=== PATIENT | female | born 1960 | race Caucasian/White ===

== ENCOUNTER 2022-04-20 12:46 | Emergency (ER) | payer OTHER ==
[~2022-04-20] VITALS: Ht 165.1 cm; Wt 94.0 kg
[2022-04-20] MEDS ORDERED: ATORVASTATIN CA10 MG PO (13:38)
[2022-04-20] MEDS ORDERED: LISINOPRIL5 MG PO (13:38)
[2022-04-20] MEDS ORDERED: CIPRO500 MG PO (14:22)
== END 2022-04-20 14:30 | disposition home or self-care (01) ==
LOC: FSED 12:49
DX: N39.0 Urinary tract infection, site not specified (principal); R31.9 Hematuria, unspecified; I10 Essential (primary) hypertension; E78.5 Hyperlipidemia, unspecified; G40.909 Epilepsy, unspecified, not intractable, without status epilepticus
CPT/HCPCS: 74176; 81003; 99284

== ENCOUNTER 2022-07-16 04:48 | Inpatient (IN) | payer MEDICARE, OTHER ==
[~2022-07-16] VITALS: Ht 165.1 cm; Wt 95.3 kg
[~2022-07-16 04:48] MED LIST: ATORVASTATIN CA10 MG PO; CIPRO500 MG PO; LISINOPRIL5 MG PO
[2022-07-16] MEDS ORDERED: SODIUM CHLORIDE 0.9% 1000ML 1,000 ML IV STA (05:17)
[2022-07-16] MEDS ORDERED: ONDANSETRON HCL INJ 2MG/ML 2ML 2 MG/ML VIAL IV STA (05:17)
[2022-07-16 05:23] LABS: BASOPHILS # (AUTO) 0.1 (0.0-0.1); BASOPHILS % 0.6 % (0.0-1.0); EOSINOPHILS # (AUTO) 0.2 (0.0-0.4); EOSINOPHILS % 1.7 % (0.0-6.0); HEMATOCRIT 39.3 % (34.2-44.1); HEMOGLOBIN 13.8 g/dL (12.0-16.0); LYMPHOCYTES # (AUTO) 1.9 (1.0-3.2); LYMPHOCYTES % 22.1 % (18.0-39.1); MEAN CORPUSCULAR HEMOGLOBIN 32.3 pg (28-32); MEAN CORPUSCULAR HGB CONC 35.1 g/dL (31-35); MONOCYTES # (AUTO) 0.4 (0.2-0.8); MONOCYTES % 5.1 % (4.4-11.3); NEUTROPHILS # (AUTO) 6.1 (2.1-6.9); PLATELET COUNT 262 x10e3/uL (140-360); RED BLOOD COUNT 4.27 x10e6/uL (3.6-5.1)
[2022-07-16] MEDS ORDERED: DICYCLOMINE HCL 20 MG/2 ML VIAL IM ONE (05:30)
[2022-07-16 05:38] LABS: ALANINE AMINOTRANSFERASE 27 IU/L (0-55); ALBUMIN 3.9 g/dL (3.5-5.0); ALBUMIN/GLOBULIN RATIO 1.1 (0.8-2.0); ALKALINE PHOSPHATASE 107 IU/L (40-150); BLOOD UREA NITROGEN 15 mg/dL (7-26); BUN/CREATININE RATIO 18 (6-25); CARBON DIOXIDE 23 mmol/L (22-29); CHLORIDE 106 mmol/L (98-107); CREATINE KINASE 132 IU/L (29-168); CREATININE, SERUM 0.85 mg/dL (0.57-1.11); GLUCOSE 140 mg/dL (74-118); LIPASE 38 U/L (8-78); MAGNESIUM 1.9 MG/DL (1.3-2.1); SODIUM 141 mmol/L (136-145)
[2022-07-16 05:42] LABS: CLARITY,URINE CLEAR (CLEAR); COLOR,URINE YELLOW (YELLOW); KETONES,URINE NEGATIVE (NEGATIVE); LEUKOCYTE ESTERASE ,URINE NEGATIVE (NEGATIVE); NITRITE,URINE NEGATIVE (NEGATIVE); PROTEIN,URINE DIPSTICK NEGATIVE (NEGATIVE); URINE UROBILINOGEN 0.2 mg/dL (0.2 - 1)
[2022-07-16 05:54] LABS: BACTERIA,URINE MODERATE /HPF; EPITHELIAL CELLS,URINE FEW /LPF; WBC,URINE (MAN) 0-5 /HPF (0-5)
[2022-07-16] MEDS ORDERED: IOPAMIDOL 370 MG/ML 100 ML INFUS..BTL INJ ONE (06:41)
[2022-07-16] MEDS: Morphine 4mg INJECTION 4 MG/ML INJ IV PRN (08:41)
[2022-07-16] MEDS: SODIUM CHLORIDE 0.9% 1000ML 1,000 ML IV SCH ×2 (08:41→17:06)
[2022-07-16] MEDS: ONDANSETRON HCL INJ 2MG/ML 2ML 2 MG/ML VIAL IV PRN (08:41)
[2022-07-16 09:26] VITALS: BP 157/88
[2022-07-16 10:00] VITALS: BP 157/88
[2022-07-16 12:09] VITALS: BP 135/82
[2022-07-16] MEDS: LISINOPRIL 2.5 MG TAB PO SCH (16:08)
[2022-07-16] MEDS: BUPROPION HCL 150 MG TABCR PO SCH (16:08)
[2022-07-16 16:48] VITALS: BP 132/78
[2022-07-16 20:00] VITALS: BP 107/71
[2022-07-16] MEDS: ATORVASTATIN 10 MG TAB PO SCH (20:56)
[2022-07-17] VITALS (9 sets, daily range): BP systolic 105–137; BP diastolic 62–78
[2022-07-17] MEDS: SODIUM CHLORIDE 0.9% 1000ML 1,000 ML IV SCH ×3 (04:00→16:27)
[2022-07-17 06:27] LABS: BASOPHILS % 0.3 % (0.0-1.0); EOSINOPHILS # (AUTO) 0.1 (0.0-0.4); EOSINOPHILS % 1.7 % (0.0-6.0); HEMATOCRIT 37.9 % (34.2-44.1); HEMOGLOBIN 12.7 g/dL (12.0-16.0); LYMPHOCYTES # (AUTO) 1.7 (1.0-3.2); LYMPHOCYTES % 25.7 % (18.0-39.1); MEAN CORPUSCULAR HEMOGLOBIN 32.1 pg (28-32); MEAN CORPUSCULAR HGB CONC 33.5 g/dL (31-35); MEAN CORPUSCULAR VOLUME 95.7 fL (81-99); MONOCYTES # (AUTO) 0.4 (0.2-0.8); MONOCYTES % 6.4 % (4.4-11.3); NEUTROPHILS # (AUTO) 4.3 (2.1-6.9); NEUTROPHILS % 65.4 % (38.7-80.0); PLATELET COUNT 211 x10e3/uL (140-360); RED BLOOD COUNT 3.96 x10e6/uL (3.6-5.1); RED CELL DISTRIBUTION WIDTH 12.7 % (11.7-14.4)
[2022-07-17 06:47] LABS: ALBUMIN 3.4 g/dL (3.5-5.0); ALBUMIN/GLOBULIN RATIO 1.2 (0.8-2.0); ANION GAP 13.6 mmol/L (8-16); CALCIUM 8.4 mg/dL (8.4-10.2); CREATININE, SERUM 0.73 mg/dL (0.57-1.11); POTASSIUM 3.6 mmol/L (3.5-5.1)
[2022-07-17] MEDS: LISINOPRIL 2.5 MG TAB PO SCH ×2 (08:47→16:28)
[2022-07-17] MEDS: BUPROPION HCL 150 MG TABCR PO SCH (08:47)
[2022-07-17] MEDS ORDERED: BUPIVACAINE HCL 0.25% 10ML MPF VIAL INJ ONE (09:45)
[2022-07-17] MEDS ORDERED: ONDANSETRON HCL INJ 2MG/ML 2ML 2 MG/ML VIAL IV PRN (11:00)
[2022-07-17] MEDS ORDERED: LIDOCAINE HCL 2% LOCAL INJ 5 ML SDV VIAL INJ ONE (12:15)
[2022-07-17] MEDS ORDERED: POVIDONE IODINE 0.05% 0.05 % ML PO ONE (12:15)
[2022-07-17] MEDS ORDERED: ATROPINE SULFATE 1 MG/ML VIAL ONE (12:15)
[2022-07-17] MEDS ORDERED: DEXAMETHASONE SOD PHOS INJ 4 MG/ML SDV ONE (12:15)
[2022-07-17] MEDS ORDERED: PROPOFOL IV EMULSION 10 MG/ML 20 ML VIAL ONE (12:15)
[2022-07-17] MEDS ORDERED: NEOSTIGMINE 1 MG/ML 10ML VIAL ONE (12:15)
[2022-07-17] MEDS ORDERED: ROCURONIUM BROMIDE 10 MG/ML 5ML VIAL IV ONE (12:15)
[2022-07-17] MEDS ORDERED: SEVOFLURANE INHAL SOLN 250 ML PEN BTL ONE (12:15)
[2022-07-17] MEDS ORDERED: KETOROLAC TROMETHAMINE 30 MG/ML VIAL ONE (12:15)
[2022-07-17] MEDS ORDERED: ONDANSETRON HCL INJ 2MG/ML 2ML 2 MG/ML VIAL ONE (12:15)
[2022-07-17] MEDS: ONDANSETRON HCL INJ 2MG/ML 2ML 2 MG/ML VIAL IV PRN (12:34)
[2022-07-17] MEDS: Morphine 4mg INJECTION 4 MG/ML INJ IV PRN (12:35)
[2022-07-17] MEDS ORDERED: MIDAZOLAM HCL 2 MG/2 ML VIAL ONE (13:11)
[2022-07-17] MEDS ORDERED: FENTANYL CITRATE/PF 100MCG/2 ML INJ ONE (13:11)
[2022-07-17] MEDS: HYDROCODONE/APAP 5MG-325MG TAB PO PRN (17:59)
[2022-07-17] MEDS: ATORVASTATIN 10 MG TAB PO SCH (21:59)
[2022-07-18] MEDS: HYDROCODONE/APAP 5MG-325MG TAB PO PRN ×2 (00:21→08:09)
[2022-07-18 01:39] VITALS: BP 113/63
[2022-07-18 04:00] VITALS: BP 113/63
[2022-07-18 04:57] LABS: BASOPHILS % 0.2 % (0.0-1.0); EOSINOPHILS % 0.1 % (0.0-6.0); HEMATOCRIT 35.5 % (34.2-44.1); HEMOGLOBIN 12.6 g/dL (12.0-16.0); LYMPHOCYTES # (AUTO) 1.3 (1.0-3.2); LYMPHOCYTES % 11.3 % (18.0-39.1); MEAN CORPUSCULAR HEMOGLOBIN 32.6 pg (28-32); MEAN CORPUSCULAR HGB CONC 35.5 g/dL (31-35); MEAN CORPUSCULAR VOLUME 91.7 fL (81-99); MONOCYTES # (AUTO) 0.5 (0.2-0.8); MONOCYTES % 4.6 % (4.4-11.3); NEUTROPHILS # (AUTO) 9.8 (2.1-6.9); NEUTROPHILS % 83.3 % (38.7-80.0); PLATELET COUNT 234 x10e3/uL (140-360); RED BLOOD COUNT 3.87 x10e6/uL (3.6-5.1); RED CELL DISTRIBUTION WIDTH 13.1 % (11.7-14.4)
[2022-07-18 05:27] LABS: ALBUMIN 3.5 g/dL (3.5-5.0); ALBUMIN/GLOBULIN RATIO 1.2 (0.8-2.0); ANION GAP 15.1 mmol/L (8-16); CALCIUM 8.6 mg/dL (8.4-10.2); CREATININE, SERUM 0.78 mg/dL (0.57-1.11); POTASSIUM 4.1 mmol/L (3.5-5.1)
[2022-07-18] MEDS ORDERED: ULTRACET TABLE1 EACH PO (06:34)
[2022-07-18 07:38] VITALS: BP 112/65
[2022-07-18 08:00] VITALS: BP 119/66
[2022-07-18] MEDS: LISINOPRIL 2.5 MG TAB PO SCH (08:25)
[2022-07-18] MEDS: BUPROPION HCL 150 MG TABCR PO SCH (08:25)
[2022-07-18] MEDS ORDERED: ONDANSETRON HCL 4 MG ORAL DISINTEGRATING TAB PO PRN (09:15)
[2022-07-18] MEDS ORDERED: ALPRAZOLAM 0.5 MG TAB PO ONE (11:30)
[2022-07-18 16:02] VITALS: BP 116/72
== END 2022-07-18 17:10 | disposition home or self-care (01) | DRG 419 ==
LOC: ER 04:54 → ERHOLD 08:01 → MED/SURG3 09:08 → MED/SURG 07-17 17:28
PROVIDERS: ADMIT Internal Medicine; ATTEND Internal Medicine
PROC: 0FT44ZZ Resection of Gallbladder, Percutaneous Endoscopic Approach (ICD-10-PCS; principal; 2022-07-17 10:11)
DX: K80.12 Calculus of gallbladder with acute and chronic cholecystitis without obstruction (principal); K82.8 Other specified diseases of gallbladder; I10 Essential (primary) hypertension; F41.9 Anxiety disorder, unspecified; Z87.891 Personal history of nicotine dependence; Z20.822 Contact with and (suspected) exposure to COVID-19
CPT/HCPCS: 0223U; 36415; 71045; 74177; 76705; 80053; 81001; 82150; 82550; 82553; 83690; 83735; 84484; 85025; 88304; 93005; 96361; J0461; J0500; J0696; J1100; J1885; J2001; J2250; J2270; J2405; J2543; J2710; J3010; J7030; Q9967

== ENCOUNTER 2025-05-09 14:04 | Emergency (ER) | payer MEDICARE ==
[~2025-05-09] VITALS: Ht 162.6 cm; Wt 96.4 kg
[~2025-05-09 14:04] MED LIST changes: +ULTRACET TABLE1 EACH PO
[2025-05-09] MEDS ORDERED: CIPRO500 MG PO (16:16)
[2025-05-09] MEDS ORDERED: IMODIUM A-D2 M2 PO (16:16)
[2025-05-09] MEDS: SODIUM CHLORIDE 0.9% 1000ML 1,000 ML IV ONE ×2 (16:20→17:59)
[2025-05-09] MEDS: ACETAMINOPHEN 325 MG TAB PO ONE (18:06)
[2025-05-09 18:07] VITALS: PULSE 137; RESP 17; TEMP 97.7
[2025-05-09 18:41] VITALS: BP 139/97; PULSE 134; RESP 18; O2SAT 98
== END 2025-05-09 18:40 | disposition home or self-care (01) ==
LOC: FSED 14:08
DX: R19.7 Diarrhea, unspecified (principal); R00.0 Tachycardia, unspecified; I10 Essential (primary) hypertension; F41.9 Anxiety disorder, unspecified; R94.31 Abnormal electrocardiogram [ECG] [EKG]
CPT/HCPCS: 71046; 80048; 80076; 81003; 84484; 85025; 85379; 93005; 99283; J7030

== ENCOUNTER 2025-05-21 09:48 | Inpatient (IN) | payer MEDICARE ==
[~2025-05-21] VITALS: Ht 162.6 cm; Wt 97.5 kg
[~2025-05-21 09:48] MED LIST changes: +IMODIUM A-D2 M2 PO
[2025-05-21 10:40] LABS: BASOPHILS % 0.6 % (0.0-1.0); EOSINOPHILS % 1.7 % (0.0-6.0); LYMPHOCYTES % 20.7 % (18.0-39.1); MONOCYTES % 5.3 % (4.4-11.3); NEUTROPHILS % 71.1 % (38.7-80.0); RED CELL DISTRIBUTION WIDTH 13.6 % (11.7-14.4)
[2025-05-21] MEDS: SODIUM CHLORIDE 0.9% 1000ML 1,000 ML IV STA (10:48)
[2025-05-21] MEDS: METOPROLOL TARTRATE 25 MG TAB PO ONE (10:59)
[2025-05-21] MEDS: METOPROLOL TARTRATE INJ 1 MG/ML VIAL IV ONE (10:59)
[2025-05-21 11:01] LABS: EST GLOMERULAR FILTRATION RATE 70.0 ML/MIN (>=60)
[2025-05-21 11:48] LABS: LEUKOCYTE ESTERASE ,URINE SMALL (NEGATIVE)
[2025-05-21 11:49] LABS: EPITHELIAL CELLS,URINE FEW /LPF; PROTEIN,URINE DIPSTICK NEGATIVE (NEGATIVE); URINE UROBILINOGEN 0.2 mg/dL (0.2 - 1)
[2025-05-21 11:58] LABS: INR 1.17
[2025-05-21] MEDS: ASPIRIN 81 MG CHEW TAB PO ONE (12:56)
[2025-05-21 14:06] VITALS: PULSE 118; RESP 18; TEMP 98.2
[2025-05-21 14:54] VITALS: BP 115/87; PULSE 120; RESP 18; TEMP 97.8; O2SAT 98
[2025-05-21 15:25] VITALS: BP 115/87; PULSE 120; RESP 18; TEMP 97.8; O2SAT 98
[2025-05-21] MEDS ORDERED: ACETAMINOPHEN 325 MG TAB PO PRN (16:30)
[2025-05-21] MEDS ORDERED: LIDOCAINE 4% PATCH TP PRN (16:30)
[2025-05-21] MEDS ORDERED: BENZONATATE 100 MG CAP PO PRN (16:30)
[2025-05-21] MEDS ORDERED: POTASSIUM CHLORIDE 20 MEQ TAB CR PO PRN (16:30)
[2025-05-21] MEDS ORDERED: HYDRALAZINE HCL 20 MG/ML VIAL IV PRN (16:30)
[2025-05-21] MEDS ORDERED: DIPHENHYDRAMINE HCL 25 MG CAP PO PRN (16:30)
[2025-05-21] MEDS ORDERED: ALBUTEROL/IPRATROPIUM 3 ML NEB NEB PRN (16:30)
[2025-05-21] MEDS ORDERED: ONDANSETRON HCL INJ 2MG/ML 2ML 2 MG/ML VIAL IV PRN (16:30)
[2025-05-21] MEDS ORDERED: DEXTROSE 50% SYRINGE 50 ML IV PRN (16:30)
[2025-05-21] MEDS ORDERED: IOPAMIDOL 370 MG/ML 100 ML INFUS..BTL INJ ONE (17:03)
[2025-05-21] MEDS: ENOXAPARIN SOD INJ 40 MG/0.4 ML SYR SC SCH (18:42)
[2025-05-21] MEDS: METOPROLOL TARTRATE 50 MG TAB PO SCH (18:43)
[2025-05-21 20:34] VITALS: BP 116/85; PULSE 130; RESP 20; TEMP 98.5; O2SAT 93
[2025-05-21] MEDS: D5.45%NS/KCL 20MEQ 1,000 ML IV SCH (20:54)
[2025-05-21 22:27] VITALS: BP 116/85; PULSE 130; RESP 20; TEMP 98.5; O2SAT 93
[2025-05-22] VITALS (11 sets, daily range): BP systolic 87–115; BP diastolic 61–90; PULSE 52–130; RESP 16–23; TEMP 97.5–98.6; O2SAT 95–100
[2025-05-22] MEDS: MELATONIN 5 MG TABLET PO PRN (02:10)
[2025-05-22] MEDS: METOPROLOL TARTRATE INJ 1 MG/ML VIAL IV PRN (03:29)
[2025-05-22 07:23] LABS: BASOPHILS % 0.6 % (0.0-1.0); EOSINOPHILS % 0.5 % (0.0-6.0); LYMPHOCYTES % 20.7 % (18.0-39.1); MONOCYTES % 5.3 % (4.4-11.3); NEUTROPHILS % 72.4 % (38.7-80.0); RED CELL DISTRIBUTION WIDTH 13.7 % (11.7-14.4)
[2025-05-22] MEDS: METOPROLOL TARTRATE 25 MG TAB PO ONE (07:23)
[2025-05-22 07:34] LABS: CHOL/HDL RATIO 2.4 (3.0-3.6); EST GLOMERULAR FILTRATION RATE 78.0 ML/MIN (>=60); LDL CHOLESTEROL 40.0 MG/DL (60-130)
[2025-05-22 08:00] LABS: PHOSPHORUS 3.4 MG/DL (2.3-4.7)
[2025-05-22] MEDS ORDERED: ASPIRIN 81 MG ENTERIC COATED PO SCH (09:00)
[2025-05-22] MEDS: PANTOPRAZOLE SOD 40 MG TABEC PO SCH (10:34)
[2025-05-22] MEDS: AMIODARONE HCL 200 MG TAB PO SCH (10:34)
[2025-05-22] MEDS ORDERED: BUPROPION XL150 MG PO (10:35)
[2025-05-22] MEDS: METOPROLOL SUCCINATE 50 MG TAB XL PO SCH (10:36)
[2025-05-22] MEDS: APIXABAN 5 MG TABLET PO SCH (10:37)
[2025-05-22] MEDS: SIMETHICONE 80 MG CHEW PO PRN (10:45)
[2025-05-22] MEDS: FUROSEMIDE INJ 10 MG/ML 4 ML VIAL IV SCH (15:27)
[2025-05-22] MEDS ORDERED: FUROSEMIDE INJ 10 MG/ML 2 ML VIAL IV SCH (15:30)
[2025-05-22] MEDS: ATORVASTATIN 10 MG TAB PO SCH (21:54)
[2025-05-23] VITALS (8 sets, daily range): BP systolic 100–141; BP diastolic 67–98; PULSE 61–125; RESP 16–20; TEMP 97.5–98.3; O2SAT 96–100
[2025-05-23 05:56] LABS: BASOPHILS % 0.6 % (0.0-1.0); EOSINOPHILS % 1.0 % (0.0-6.0); LYMPHOCYTES % 19.1 % (18.0-39.1); MONOCYTES % 6.1 % (4.4-11.3); NEUTROPHILS % 72.8 % (38.7-80.0); RED CELL DISTRIBUTION WIDTH 14.0 % (11.7-14.4)
[2025-05-23] MEDS ORDERED: IOPAMIDOL 370 MG/ML 100 ML INFUS..BTL INJ ONE (06:03)
[2025-05-23 06:12] LABS: EST GLOMERULAR FILTRATION RATE 61.0 ML/MIN (>=60)
[2025-05-23] MEDS: BUPROPION HCL 150 MG TABCR PO SCH (09:36)
[2025-05-23] MEDS ORDERED: LOSARTAN POTASS25 MG PO (09:38)
[2025-05-24] VITALS (7 sets, daily range): BP systolic 117–133; BP diastolic 89–104; PULSE 60–122; RESP 18–22; TEMP 97.4–98.6; O2SAT 95–99
[2025-05-24] MEDS: DOCUSATE SODIUM 100 MG CAP PO PRN (09:11)
[2025-05-24] MEDS: METOPROLOL SUCCINATE 50 MG TAB XL PO SCH (09:12)
[2025-05-24] MEDS: AMIODARONE HCL 200 MG TAB PO SCH (09:13)
== END 2025-05-24 18:30 | disposition home or self-care (01) | DRG 308 ==
LOC: ER 10:29 → ERHOLD 13:03 → MED/SURG3 14:25
PROVIDERS: ADMIT Internal Medicine; ATTEND Internal Medicine
PROC: 02HV33Z Insertion of Infusion Device into Superior Vena Cava, Percutaneous Approach (ICD-10-PCS; principal; 2025-05-22)
DX: R00.0 Tachycardia, unspecified (principal); I50.23 Acute on chronic systolic (congestive) heart failure; I48.92 Unspecified atrial flutter; I11.0 Hypertensive heart disease with heart failure; A08.4 Viral intestinal infection, unspecified; R19.7 Diarrhea, unspecified; E86.0 Dehydration; E66.9 Obesity, unspecified; R60.0 Localized edema; G47.33 Obstructive sleep apnea (adult) (pediatric); E78.5 Hyperlipidemia, unspecified; Z90.710 Acquired absence of both cervix and uterus; G40.909 Epilepsy, unspecified, not intractable, without status epilepticus
CPT/HCPCS: 36415; 36569; 71045; 71260; 74177; 80048; 80053; 80061; 81001; 82550; 82948; 83036; 83735; 83880; 84100; 84443; 84484; 85025; 85379; 85610; 85730; 87040; 87086; 93005; 93306; 93970; 94799; 99284; J0696; J1650; J1938; J2470; J7030; Q9967